=== PATIENT | female | born 1950 | race Caucasian/White ===

== ENCOUNTER 2021-07-18 06:19 | Day surgery (SDC) | payer SELFPAY ==
[2021-07-18 06:56] VITALS: BMI 29.2
[2021-07-18] MEDS ORDERED: ceFAZolin SODIUM 1 GM VIAL ONE (07:12)
[2021-07-18] MEDS ORDERED: ERYTHROMYCIN 0.5% OPHTHALMIC OINTMENT 3.5 GM TUBE ONE (07:12)
[2021-07-18] MEDS ORDERED: BUPIVACAINE HCL 50 ML ONE (07:12)
[2021-07-18] MEDS ORDERED: POVIDONE-IODINE 5% OPHTHALMIC PREP 30 ML SOLUTION ONE (07:12)
[2021-07-18] MEDS ORDERED: TETRACAINE 0.5% OPHTH SOLN 2 ML BOTTLE ONE (07:13)
[2021-07-18] MEDS ORDERED: LIDOCAINE 1%/EPI 1:100000 (20 ML MULTI DOSE VIAL) ONE (07:13)
[2021-07-18] MEDS ORDERED: KETOROLAC TROMETHAMINE 30 MG/1 ML VIAL ONE (07:44)
[2021-07-18] MEDS ORDERED: DEXAMETHASONE SOD PHOSPHATE 4 MG/1 ML VIAL ONE (07:44)
[2021-07-18] MEDS ORDERED: ONDANSETRON 4 MG/2 ML VIAL ONE (07:44)
[2021-07-18] MEDS ORDERED: SUCCINYLCHOLINE CHLORIDE 200 MG/10 ML SYRINGE ONE (07:45)
[2021-07-18] MEDS ORDERED: MIDAZOLAM HCL 2 MG/2 ML SINGLE DOSE VIAL ONE (07:45)
[2021-07-18] MEDS ORDERED: KETAMINE HCL 200 MG/20 ML VIAL ONE (07:45)
[2021-07-18] MEDS ORDERED: PROPOFOL 20 ML ONE ×3 (07:45)
[2021-07-18] MEDS ORDERED: ACETAMINOPHEN 325 MG TABLET (FP) PO PRN (08:46)
[2021-07-18] MEDS ORDERED: oxyCODONE HCL 5 MG TABLET PO PRN ×2 (08:46)
[2021-07-18] MEDS ORDERED: ONDANSETRON 4 MG/2 ML VIAL IVPUSH PRN (08:46)
[2021-07-18] MEDS ORDERED: PROMETHAZINE HCL 25 MG/1 ML VIAL IVPUSH PRN (08:46)
[2021-07-18 09:45] VITALS: TEMP 97.8
[2021-07-18 10:11] VITALS: BP 114/67; PULSE 74
== END 2021-07-18 10:25 | disposition home or self-care (01) ==
LOC: FASU 06:19
PROVIDERS: ATTEND Ophthalmology
PROC: 08BP0ZZ Excision of Left Upper Eyelid, Open Approach (ICD-10-PCS; principal; 2021-07-18 08:07)
DX: H02.422 Myogenic ptosis of left eyelid (principal)
CPT/HCPCS: 82962; 88304-TC; 94760